=== PATIENT | female | born 1965 | race Caucasian/White ===

== ENCOUNTER 2019-11-17 14:00 | Emergency (ER) | payer OTHER ==
--- NOTE | 2019-11-17 14:20 | PDOC ---
Rapid Medical Evaluation Time Seen by Provider: 11/17/19 14:16 Medical Evaluation: 11/17/19 14:16 I have preformed a brief in person exam HPI: poor historian 54 year old female ? ETOH abuse complaining of vomiting after vodka consumption last drink yesterday. PE: weak ? intoxicated uncooperative Plan: Labs IVF Pt to precede to ED for further eval
[2019-11-17] MEDS ORDERED: ONDANSETRON 4 MG/2 ML VIAL IVPUSH ONE (14:21)
[2019-11-17] MEDS ORDERED: SODIUM CHLORIDE 0.9% 500 ML INFUS.BAG IV ONE (14:21)
[2019-11-17] MEDS ORDERED: FAMOTIDINE 20 MG/50 ML IVPB 20 MG/50 ML MG IVPB ONE ×2 (14:22→17:00)
[2019-11-17 14:30] VITALS: TEMP 98.3; BMI 25.8
[2019-11-17 17:08] LABS: BASO % 0.7 % (0-2.0); HEMATOCRIT 46.2 % (32.4-45.2); HEMOGLOBIN 15.4 GM/dL (10.7-15.3); LYMPH % 28.2 % (8-40); MCH 29.1 pg (25.7-33.7); MCHC 33.3 g/dl (32.0-36.0); MEAN CELL VOLUME 87.1 fl (80-96); MEAN PLT VOLUME 7.3 fl (7.5-11.1); MONO % 9.6 % (3.8-10.2); NEUT % 61.5 % (42.8-82.8); PLATELET COUNT 318 K/MM3 (134-434); RDW 14.4 % (11.6-15.6); WHITE BLOOD COUNT 6.8 K/mm3 (4.0-10.0)
[2019-11-17 17:17] LABS: INR 0.92 (0.83-1.09); PROTHROMBIN TIME (PATIENT) 10.8 SEC (9.7-13.0)
[2019-11-17 17:20] LABS: ACTIVATED PTT 29.9 SECONDS (25.2-36.5)
--- NOTE | 2019-11-17 17:31 | PDOC ---
History of Present Illness - General Chief Complaint: Alcohol intoxication Stated Complaint: Alcohol intoxication Time Seen by Provider: 11/17/19 14:16 History Source: Patient Exam Limitations: No Limitations - History of Present Illness Initial Comments: 11/17/19 17:29 54-year-old female history of alcohol abuse brought in by a friend for alcohol intoxication, nausea and vomiting since yesterday. History obtained mostly by the friend (Aydee Enamorado [phone]). patient has been drinking vodka for the past 3 days. Patient is a poor historian however denies use of illicit drugs, denies chest pain, shortness of breath, abdominal pain, trauma. ROS: as above PE: GENERAL: + AOB, arousable HEAD: NCAT EYES: Pupils equal, round and reactive to light, sclera anicteric, conjunctiva clear ENT: pharynx: no erythema, no exudate, uvula midline NECK: supple CHEST: nontender RESP: clear, no w/r/r CARDIO: rrr, no m/g/r ABD: +BS, soft, nontender, non distended BACK: no midline spinal ttp, no CVAT EXTREMITIES: Normal range of motion, no edema NEURO: Slurred speech SKIN: Warm, Dry Is this a multiple visit Asthma Patient?: No Past History - Medical History Allergies/Adverse Reactions: Allergies Allergy/AdvReac Type Severity Reaction Status Date / Time No Known Allergies Allergy Verified 11/17/19 14:17 COPD: No Psychiatric Problems: Yes (etoh abuse) - Psycho-Social/Smoking History Smoking History: Never smoked - Substance Abuse Hx (Audit-C & DAST Scrn) How often the patient has a drink containing alcohol: Never Score: In Men: 4 or > Positive; In Women: 3 or > Positive: 0 Screen Result (Pos requires Nsg. Audit-10AR): Negative *Physical Exam - Vital Signs Last Vital Signs Temp Pulse Resp BP Pulse Ox 98.3 F 112 H 18 125/80 100 11/17/19 14:17 11/17/19 14:17 11/17/19 14:17 11/17/19 14:17 11/17/19 14:17 ED Treatment Course - LABORATORY CBC & Chemistry Diagram: 11/17/19 17:00 11/17/19 17:00 - ADDITIONAL ORDERS Additional order review: Laboratory Results 11/17/19 17:00 PT with INR 10.80 INR 0.92 PTT (Actin FS) 29.9 11/17/19 17:00 RBC 5.30 H MCV 87.1 MCHC 33.3 RDW 14.4 MPV 7.3 L Neutrophils % 61.5 Lymphocytes % 28.2 Monocytes % 9.6 Eosinophils % 0.0 Basophils % 0.7 - Medications Given in the ED: ED Medications Discontinued Medications Generic Name Dose Route Start Last Admin Trade Name Ev PRN Reason Stop Dose Admin Famotidine/Sodium Chloride 20 mg in 50 mls @ 100 mls/hr 11/17/19 14:22 11/17/19 17:17 Pepcid 20 Mg Premixed Ivpb - IVPB 11/17/19 14:51 100 mls/hr ONCE ONE Administration Ondansetron HCl 4 mg 11/17/19 14:21 11/17/19 17:17 Zofran Injection IVPUSH 11/17/19 14:22 4 mg ONCE ONE Administration Sodium Chloride 1,000 ml 11/17/19 14:21 11/17/19 17:17 Normal Saline - IV 11/17/19 14:22 1,000 ml ONCE ONE Administration Medical Decision Making - Medical Decision Making 11/17/19 19:07 54-year-old female history of alcohol abuse brought in by a friend for alcohol intoxication, nausea and vomiting since yesterday. History obtained mostly by the friend (Aydee Enamorado [phone]). patient has been drinking vodka for the past 3 days. Patient is a poor historian however denies use of illicit drugs, denies chest pain, shortness of breath, abdominal pain, trauma. Review labs, lactate 2.4 Patient has ambulated to the restroom twice while in the ED Patient pulled out IV and is requesting to go home However she agrees to drink fluids p.o., acetaminophen given Will observe and repeat lactate Reassess 11/17/19 20:37 As per BONNIE Jimenes patient walked out of ED after receiving acetaminophen Discharge - Discharge Information Problems reviewed: Yes Clinical Impression/Diagnosis: Alcohol intoxication Qualifiers: Complication of substance-induced condition: with unspecified complication Q ualified Code(s): F10.929 - Alcohol use, unspecified with intoxication, unspecified Disposition: ELOPED - Follow up/Referral - Patient Discharge Instructions - Post Discharge Activity
[2019-11-17 17:42] LABS: ALBUMIN 4.4 g/dl (3.4-5.0); ALK PHOS 83 U/L (45-117); ANION GAP 12 MMOL/L (8-16); BLOOD UREA NITROGEN 9.9 mg/dL (7-18); CALCIUM 9.9 mg/dL (8.5-10.1); CHLORIDE 105 mmol/L (98-107); CO2 25 mmol/L (21-32); GLUCOSE,RANDOM 88 mg/dL (74-106); POTASSIUM 4.3 mmol/L (3.5-5.1); SGOT/AST 25 U/L (15-37); SGPT/ALT 39 U/L (13-61); SODIUM 142 mmol/L (136-145); TOT PROT 7.9 g/dl (6.4-8.2)
[2019-11-17] MEDS ORDERED: ACETAMINOPHEN 500 MG TABLET (FP) PO ONE (18:58)
[2019-11-17 19:33] VITALS: BP 97/55; PULSE 66
[2019-11-17] MEDS ORDERED: ACETAMINOPHEN 325 MG TABLET (FP) ONE (19:36)
== END 2019-11-17 21:15 | disposition left against medical advice (07) ==
LOC: JER 14:00
PROC: 3E033GC Introduction of Other Therapeutic Substance into Peripheral Vein, Percutaneous Approach (ICD-10-PCS; principal; 2019-11-17)
DX: F10.929 Alcohol use, unspecified with intoxication, unspecified (principal)
CPT/HCPCS: 36415; 80053; 82550; 83605; 84484; 85025; 85610; 85730; 99284-25